=== PATIENT | male | born 1980 | race Caucasian/White ===

== ENCOUNTER 2023-05-26 05:16 | Emergency (ER) | payer BC, SELFPAY ==
[2023-05-26 05:18] VITALS: BP 140/85; PULSE 103; RESP 21; TEMP 37; O2SAT 100
--- NOTE | 2023-05-26 05:41 | ECG_ITS ---
Measurements Intervals [place] Rate: 81 P: 51 WA: 144 QRS: 3 QRSD: 103 T: 23 QT: 381 QTc: 442 Interpretive Statements SINUS RHYTHM NO PREVIOUS ECG AVAILABLE FOR COMPARISON Electronically Signed On 05-26-2023 9:01:10 CDT by Rayna Malloy M.D.
[2023-05-26 05:44] VITALS: BP 129/114; PULSE 102; RESP 25; O2SAT 100
--- NOTE | 2023-05-26 05:55 | ED.GENADULT ---
HPI - General Adult General Chief complaint: Unspecified Stated complaint: cannot top shivering, multiple complaints Time Seen by Provider: 05/26/23 05:39 History of Present Illness HPI narrative: Patient is a 43-year-old male presenting with shivering and scattered paresthesias. Patient states that he woke from sleep and could not stop shivering. States that then he had numbness in his feet his hands and sometimes his upper lip. States that the numbness in his feet is chronic. States he has been under a lot of stress because he is in the middle of a move and was staying in a hotel last night. He denies any pain. No headache, weakness, chest pain, shortness of breath, abdominal pain, vomiting, diarrhea, dysuria, leg swelling. Related Data Allergies Allergy/AdvReac Type Severity Reaction Status Date / Time No Known Allergies Allergy Unknown Other Unverified 05/23/19 10:29 Review of Systems Review of Systems: All systems reviewed & are unremarkable except as noted in HPI and below Exam Narrative: GENERAL: Anxious appearing, hyperventilating, pleasant and cooperative HEAD: Normocephalic, atraumatic. EYES: PERRLA and EOMI. ENT: Nares clear, no rhinorrhea or epistaxis. Mucous membranes dry NECK: Supple. CHEST: Clear to auscultation. No respiratory distress. HEART: Regular rate and rhythm ABDOMEN: Soft, nontender, nondistended EXTREMITIES: Normal range of motion. No edema. SKIN: Warm, dry, no rash. NEURO: No focal deficits. Alert and oriented x3. PSYCH: Very anxious appearing Course Vital Signs Vital signs: Vital Signs Temperature 98.6 F 05/26/23 05:18 Pulse Rate 103 H 05/26/23 05:18 Respiratory Rate 21 H 05/26/23 05:18 Blood Pressure 140/85 05/26/23 05:18 Pulse Oximetry 100 05/26/23 05:18 Oxygen Delivery Room Air 05/26/23 05:18 Temperature 98.6 F 05/26/23 05:18 Pulse Rate 78 05/26/23 07:19 Respiratory Rate 15 05/26/23 07:19 Blood Pressure 111/72 05/26/23 07:19 Pulse Oximetry 100 05/26/23 07:19 Oxygen Delivery Room Air 05/26/23 05:18 Medical Decision Making [facility] Narrative Medical decision making narrative: Patient is a 43-year-old male presenting with shivering and scattered paresthesias. Vitals are stable. Exam is remarkable for the above. EKG per my interpretation shows normal sinus rhythm, normal axis and intervals, no acute ischemic changes. Blood work with mild hypokalemia. Oral repletion has been ordered. On reevaluation, patient is sitting comfortably in bed. States that he is starting to feel better. Advised that when he starts to feel anxious that he needs to focus on his breathing and try to prevent hyperventilation. Advised that he follow-up closely with primary care. Feel he is safe for outpatient management. He is agreeable with this plan. Discharged in stable condition. Differential Diagnosis Differential Diagnosis: Anxiety, paresthesias, hyperventilation, hypokalemia Medical Records Medical records reviewed: Yes I reviewed the external patient's medical records. Vital Signs Vital Signs: Vital Signs Temperature 98.6 F 05/26/23 05:18 Pulse Rate 103 H 05/26/23 05:18 Respiratory Rate 21 H 05/26/23 05:18 Blood Pressure 140/85 05/26/23 05:18 Pulse Oximetry 100 05/26/23 05:18 Oxygen Delivery Room Air 05/26/23 05:18 Temperature 98.6 F 05/26/23 05:18 Pulse Rate 78 05/26/23 07:19 Respiratory Rate 15 05/26/23 07:19 Blood Pressure 111/72 05/26/23 07:19 Pulse Oximetry 100 05/26/23 07:19 Oxygen Delivery Room Air 05/26/23 05:18 Lab Data Lab results reviewed: Yes I reviewed the patient's lab results. 05/26/23 06:17 05/26/23 06:17 Labs: Lab Results 05/26/23 Range/Units 06:17 WBC 6.1 (4.5-10.0) K/mm3 RBC 4.83 (4.6-6.20) M/mm3 Hgb 14.6 (14.0-18.0) g/dL Hct 42.8 (42.0-52.0) % MCV 88.6 (80-100) fl MCH 30.2 (26-34) pg MCHC 34.1 (32-36) g/dl RDW 12
[2023-05-26] MEDS: SODIUM CHLORIDE 0.9% IV 1,000 ML 999 ML IV CONT (06:16)
[2023-05-26 06:27] LABS: Basophils Percent Auto 0.5 % (0.2-1.2); Eosinophils Percent Auto 0.3 % (0-4.4); Hematocrit 42.8 % (42.0-52.0); Hemoglobin 14.6 g/dL (14.0-18.0); Immature Granulocyte Absolute 0.01 K/mm3 (0.00-0.031); Immature Granulocyte Percent A 0.2 % (0-0.5); Lymphocytes Absolute Auto 1.69 K/mm3 (0.9-3.2); Lymphocytes Percent Auto 27.5 % (18.3-44.2); Mean Corpuscular HGB Conc 34.1 g/dl (32-36); Mean Corpuscular Hemoglobin 30.2 pg (26-34); Mean Corpuscular Volume 88.6 fl (80-100); Mean Platelet Volume 9.5 fl (7.4-10.4); Monocytes Absolute Auto 0.6 K/mm3 (0.1-0.6); Monocytes Percent Auto 10.1 % (2.6-8.5); Neutrophils Absolute Auto 3.8 K/mm3 (1.3-6.7); Neutrophils Percent Auto 61.4 % (45.5-73.1); Platelet Count Result 167 k/mm3 (150-375); Red Blood Count 4.83 M/mm3 (4.6-6.20); Red Cell Distribution Width 12.3 % (11.5-14.5); White Blood Count 6.1 K/mm3 (4.5-10.0)
[2023-05-26 06:37] LABS: Anion Gap 6 mmol/L (8-16); Blood Urea Nitrogen 16 mg/dL (9-20); Calcium 8.8 mg/dL (8.4-10.2); Carbon Dioxide 20 mmol/L (22-30); Chloride 108 mmol/L (98-107); Estimated CRCL calculation 140 ml/min; Estimated Glomerular Filt Rate > 60; Glucose 92 mg/dL (65-110); Sodium 134 mmol/L (137-145)
[2023-05-26 06:40] VITALS: BP 119/73; PULSE 81; RESP 14; O2SAT 96
[2023-05-26 06:42] VITALS: PULSE 80
[2023-05-26] MEDS: POTASSIUM CHLORIDE 20 MEQ ER TABLET 40 MEQ PO (06:48)
[2023-05-26 07:19] VITALS: BP 111/72; PULSE 78; RESP 15; O2SAT 100
== END 2023-05-26 07:21 | disposition home or self-care (01) ==
PROVIDERS: Emergency Provider Emergency Medicine; PCP Nurse Practitioner Family
DX: R20.2 Paresthesia of skin (principal); E87.6 Hypokalemia
CPT/HCPCS: 36415; 80048; 85025; 93005; 96360; 99283; A9270; J7030